=== PATIENT | female | born 1945 ===

== ENCOUNTER 2018-06-01 09:49 | Day surgery (SDC) | payer MEDICARE, MEDICAID ==
[2018-06-01 11:18] VITALS: O2SAT 100
[2018-06-01] MEDS ORDERED: Lactated Ringer's 1,000 ML IV ONE ×2 (12:45→13:10)
[2018-06-01] MEDS ORDERED: Propofol 10 mg/ml Inj (20 ML) ONE (12:47)
[2018-06-01] MEDS ORDERED: Lidocaine Hydrochloride 5 ML INJ ONE (13:02)
[2018-06-01 13:36] VITALS: TEMP 98
[2018-06-01 14:47] VITALS: BP 124/80; PULSE 75; RESP 14
== END 2018-06-01 14:43 | disposition home or self-care (01) ==
LOC: C.ENDO 09:49
PROVIDERS: ATTEND Internal Medicine Gastroenterology
DX: K92.1 Melena (principal); K64.1 Second degree hemorrhoids; K57.30 Diverticulosis of large intestine without perforation or abscess without bleeding; I10 Essential (primary) hypertension; E78.5 Hyperlipidemia, unspecified; K21.9 Gastro-esophageal reflux disease without esophagitis; Z79.899 Other long term (current) drug therapy
CPT/HCPCS: 45378; J2704; J7120

== ENCOUNTER 2018-09-28 11:49 | Outpatient (CLI) | payer MEDICARE, MEDICAID | END 2018-09-28 11:50 | disposition home or self-care (01) | LOC: C.RADH 11:49 | DX: M19.90 Unspecified osteoarthritis, unspecified site (principal) ==